=== PATIENT | male | born 1940 | race Caucasian/White ===

== ENCOUNTER → 2019-04-14 | Outpatient (CLI) | payer MEDICARE, OTHER ==
[~2019-04-14] MED LIST: 00186-0370-20; ATROVENTNS0.03%; CIPRO 500MG TA500 MG; FLAGYL500 MG; FLOMAX 0.40.4 MG/CAP; LASIX 40MG TABL40 MG PO; LIPITOR 80MG80 MG PO; LOPRESSOR 225 MG/TAB; LOPRESSOR 225 MG/TAB PO; MEDROL4 MG; NITROSTAT0.4 MG/TAB SL; PLAVIX 75MG TAB75 MG PO; PRILOSEC10 MG; PRILOTC; PROSCAR 5MG5 MG PO; PROTONIX 40MG T40 MG PO; RT SPIRIVA18 MCG; ZOFRAN ODT4 MG PO
== END ==
LOC: COL.RAD 10:53
DX: Z01.812 Encounter for preprocedural laboratory examination (principal); I65.23 Occlusion and stenosis of bilateral carotid arteries
CPT/HCPCS: Q9967

== ENCOUNTER 2021-02-03 19:58 | Emergency (ER) | payer MEDICARE, OTHER ==
[~2021-02-03] VITALS: Ht 172.7 cm; Wt 77.3 kg
[2021-02-03 21:30] VITALS: BP 148/64; PULSE 70; TEMP 98
== END 2021-02-03 21:30 | disposition home or self-care (01) ==
LOC: COL.ER 19:58
DX: S61.411A Laceration without foreign body of right hand, initial encounter (principal); Z79.02 Long term (current) use of antithrombotics/antiplatelets; W27.8XXA Contact with other nonpowered hand tool, initial encounter